=== PATIENT | male | born 1940 | race Two or more races ===

== ENCOUNTER 2025-03-11 18:38 | Emergency (ER) | payer OTHER ==
[~2025-03-11] VITALS: Ht 175.3 cm; Wt 64.0 kg
--- NOTE | 2025-03-11 18:52 | ECG ---
[facility] Test Date: 2025-03-11 Test Time: 18:46:37 Pat Name: SARAH DYSON Department: Room: Gender: M Residential Case Manager: PRISCA : 1940 Requested By: MAXIMILIAN SOTOMAYOR Order Number: [id number] Reading MD: Luigi Saul Measurements Intervals [place] Rate: 87 P: -56 MT: 169 QRS: -88 QRSD: 108 T: 12 QT: 382 QTc: 460 Interpretive Statements Sinus or ectopic atrial rhythm Prominent P waves, nondiagnostic Right ventricular hypertrophy Inferior infarct, old Borderline ST elevation, anterior leads Baseline wander in lead(s) V3 Electronically Signed On 03-13-2025 15:13:54 PDT by Luigi Saul Please click the below link to view image of tracing.
--- NOTE | 2025-03-11 19:07 | ED.PDOC ---
History of Present Illness HPI Comments This patient is a 84 y/o [id number] Kazakh-speaking only M who is [id number] family for c/c of generalized weakness and confusion for 3x days. Patient also is reported to have associated cough with phlegm production and sorethroat. He was seen at an urgent care facility for symptoms, with lab and im aging studies that were benign, earlier, today. Vitals stable and within normal limits, with exception of patient being hypertensive and having a O2 saturation of 93%RA. Chief Complaint: General Weakness Time Seen by MD: 19:00 Reviewed Notes: Nurses Notes, Medications, Allergies Allergies: Coded Allergies: NO KNOWN ALLERGIES (Unverified , 03/11/25) Information Source: Patient, Relative Mode of Arrival: Ambulatory Severity: Moderate Timing: Days Duration: Since onset Prehospital treatment: None Past Medical History PAST MEDICAL HISTORY: Denies Past Medical History (Other): hearing aid use Surgical History: Denies all surgeries Family History Family History: Unknown Social History Smoker: Non-Smoker Alcohol: Denies ETOH Use Drugs: Denies Drug Use Lives In: Home Constitutional: reports: fatigue, malaise, weakness; denies: chills, diaphoresis, fever, sweats, others EENTM: denies: blurred vision, double vision, ear bleeding, ear discharge, ear drainage, ear pain, ear ringing, eye pain, eye redness, hearing loss, mouth pain, mouth swelling, nasal discharge, nose bleeding, nose congestion, nose pain, photophobia, tearing, throat pain, throat swelling, voice changes, others Respiratory: reports: cough; denies: hemoptysis, orthopnea, SOB at rest, shortness of breath, SOB with excertion, stridor, wheezing, others Cardiovascular: denies: chest pain, dizzy spells, diaphoresis, Dyspnea on exertion, edema, irregular heart beat, left arm pain, lightheadedness, palpitations, PND, syncope, others Gastrointestinal: denies: abdomen distended, abdominal pain, blood streaked bowels, constipated, diarrhea, dysphagia, difficulty swallowing, hematemesis, melena, nausea, poor appetite, poor fluid intake, rectal bleeding, rectal pain, vomiting, others Genitourinary: denies: burning, dysuria, flank pain, frequency, hematuria, incontinence, penile discharge, penile sore, pain, testicle pain, testicle swelling, urgency, others Neurological: denies: dizziness, fainting, headache, left sided numbness, left sided weakness, numbness, paresthesia, pre-existing deficit, right sided numbness, right sided weakness, seizure, speech problems, tingling, tremors, weakness, others Musculoskeletal: denies: back pain, gout, joint pain, joint swelling, muscle pain, muscle stiffness, neck pain, others Integumetry: denies: bruises, change in color, change in hair/nails, dryness, laceration, lesions, lumps, rash, wounds, others Allergic/Immunocompromised: denies: Difficulty Healing, Frequent Infections, Hives, Itching, others Hematologic/Lymphatic: denies: anemia, blood clots, easy bleeding, easy bruising, swollen glands, others Endocrine: denies: excessive hunger, excessive sweating, excessive thirst, excessive urination, flushing, intolerance to cold, intolerance to heat, unexplained weight gain, unexplained weight loss, others Psychiatric: denies: anxiety, bipolar disorder, depression, hopeless, panic disorder, schizophrenia, sleepless, suicidal, others Unable to Obtain due to: Altered Mental Status All Other Systems: Reviewed and Negative (As per HPI) Physical Exam General Appearance: Mild Distress (Patient appeared to be in mild distress at time of evaluation. Patient was confused and displayed signs of altered mental status.), Normal HEENT: Head (Cranial exam was unremarkable. No signs of trauma. No skull depressions or deformities.), Normal ENT Inspection, Pharynx Normal, TMs Normal Neck: Full Range of Motion, Non-Tender, Normal, Normal Inspection Respiratory: Chest Non-Tender, Lungs Clear, No Accessory Muscle Use, No Respiratory Distress, Normal Breath Sounds Cardiovascular: No Edema, No JVD, No Murmur, No Gallop, Normal Peripheral Pulses, Regular Rate/Rhythm Breast Exam: Deferred Gastrointestinal: No Organomegaly, Non Tender, No Pulsatile Mass, Normal Bowel Sounds, Soft Genitalia: Deferred Pelvic: Deferred Rectal: Deferred Extremities: Other (Patient did not display any signs of trauma or injury, but was unable to perform strength or respond to commands related to cranial nerves evaluation.) Neurologic: Disoriented Cerebellar Function: NOT DONE Reflexes: NOT DONE Skin: Dry, Normal Color, Warm Lymphatic: No Adenopathy Was a procedure done? Was a procedure done?: No Differential Dx Considerations may include: URI, viral, PNA, encephalopathy, sepsis, electrolyte abnormality, UTI among others X-Ray, Labs, Meds, VS Vital Signs Date Time Temp Pulse Resp B/P (MAP) Pulse Ox O2 Delivery O2 Flow Rate FiO2 03/11/25 21:41 97.4 75 13 136/77 (96) 97 97.4 03/11/25 21:41 Room Air* 0 21 03/11/25 20:57 121/50 03/11/25 20:37 121/55 03/11/25 20:31 76 20 97 Room Air* 0 21 03/11/25 20:31 98.1 76 20 121/55 (77) 98 98.1 03/11/25 19:46 80 03/11/25 18:46 87 03/11/25 18:40 98.1 88 18 164/91 93 98.1 Lab Test 03/11/25 22:53 03/11/25 22:52 03/11/25 22:00 03/11/25 19:58 Range/Units Influenza Type A Antigen Pending Influenza Type B Antigen Pending SARS-CoV-2 Antigen (Rapid) Positive *A NEGATIVE Urine Color Light-yellow Yellow Urine Clarity Clear Clear Urine pH 6.0 5.0-9.0 Urine Specific [place] 1.014 1.001-1.035 Urine Protein Trace H Negative Urine Ketones 1+ H Negative Urine Blood Trace H Negative /uL Urine Nitrite Negative Negative Urine Bilirubin Negative Negative Urine Urobilinogen Normal Negative mg/dL Urine Leukocyte Esterase Negative Negative /uL Urine RBC 5 0 - 3 /hpf Urine Microscopic WBC 1 0-3 /HPF Urine Squamous Epithelial Cells None seen <5 /hpf Urine Bacteria Few H None Seen /hpf Urine Glucose Normal Normal mg/dL Troponin I High Sensitivity 35 32 </=54 ng/L Test 03/11/25 19:10 Range/Units White Blood Count 7.6 4.4-10.8 10^3/uL Red Blood Count 4.43 L 4.5-5.90 10^6/uL Hemoglobin 14.0 13.5-17.5 g/dL Hematocrit 40.7 L 41.0-53.0 % Mean Corpuscular Volume 92.0 80.0-100.0 fL Mean Corpuscular Hemoglobin 31.6 28.0-32.0 pg Mean Corpuscular Hemoglobin Concent 34.4 32.0-36.0 g/dL Red Cell Distribution Width 13.1 11.8-14.3 % Platelet Count 210 140-450 10^3/uL Mean Platelet Volume 7.7 6.9-10.8 fL Neutrophils (%) (Auto) 91.9 H 37.0-80.0 % Lymphocytes (%) (Auto) 1.9 L 10.0-50.0 % Monocytes (%) (Auto) 6.1 0.0-12.0 % Eosinophils (%) (Auto) 0.0 0.0-7.0 % Basophils (%) (Auto) 0.1 0.0-2.0 % Neutrophils # (Auto) 6.9 1.6-8.6 10 ^3/uL Lymphocytes # (Auto) 0.1 L 0.4-5.4 10 ^3/uL Monocytes # (Auto) 0.5 0-1.3 10 ^3/uL Eosinophils # (Auto) 0 0-0.8 10 ^3/uL Basophils # (Auto) 0 0-0.2 10 ^3/uL Nucleated Red Blood Cells 0.0 % Sodium Level 124 L 136-145 mmol/L Potassium Level 4.0 3.5-5.1 mmol/L Chloride Level 88 L 98-107 mmol/L Carbon Dioxide Level 25 20-31 mmol/L Anion Gap 11 5-15 Blood Urea Nitrogen 12 9-23 mg/dL Creatinine 0.72 0.700-1.30 mg/dL Glomerular Filtration Rate Calc 89 >90 mL/min BUN/Creatinine Ratio 16.7 10.0-20.0 Serum Glucose 119 H 74-106 mg/dL Lactic Acid Level 1.1 0.4-2.0 mmol/L Calcium Level 8.7 8.7-10.4 mg/dL Total Bilirubin 0.9 0.2-1.0 mg/dL Aspartate Amino Transferase (AST) 56 H 13-40 U/L Alanine Aminotransferase (ALT) 25 7-40 U/L Alkaline Phosphatase 64 46-116 U/L Troponin I High Sensitivity 25 </=54 ng/L B-Type Natriuretic Peptide 276.22 0-100 pg/mL Total Protein 7.1 5.7-8.2 g/dL Albumin 4.1 3.2-4.8 g/dL Current Medications Medications (Trade) Dose Ordered Sig/Dony Route Start Time Stop Time Status Last Admin Furosemide (Lasix Injection) 40 mg ONCE ONCE IV 03/11/25 20:45 03/11/25 20:46 DC 03/11/25 20:57 X-Ray, Labs, Meds, VS Comment All studies performed the ED were evaluated by me personally. Patient displayed some hyponatremia as well as an elevated BNP indicative of poorly controlled CHF. EKG revealed a sinus rhythm with a rate of 80. Right bundle-branch block and left anterior fascicular block was noted. LVH by voltage. IL interval of 155 and QT interval 421. Cardiac markers were unremarkable for any acute cardiac muscle concern. CT study was unremarkable for any acute cranial process, but the patient remains altered. Patient will be admitted for management of his electrolyte concerns as well as probable cardiac evaluation and nonemergent neurologic evaluation. This patient's insurance his Choice and therefore, provider Klaus Samano was contacted. I discussed with the patient initial presentation as well as laboratory and imaging results with him. He will come to our facility and assess the patient for admission for discharge. Time of 1ST Reevaluation: 20:30 Reevaluation 1ST: Unchanged Consultation: PCP, Cardiology, Neurology Patient Education/Counseling: Diagnosis, Treatment Family Education/Counseling: Diagnosis, Treatment, No Family Present SEPSIS Sepsis Screen Date sepsis recognized/suspect: Mar 11, 2025 Time Sepsis recognized/suspect: 1840 Recent Procedure: No On Antibiotic Therapy: No Respiratory Rate >20: No Heart Rate >90: No Temp<36 C (96.8 F) or >38.3 C: No SBP <90 or MAP <65 mmHG: No New Acute Mental Status Change: No Is the patient on CPAP, BIPAP,: No Physician Orders Electrocardigram (03/11/25 19:50) Electrocardigram (03/11/25 21:50) Head Without Contrast (03/11/25 18:50) Continuous Ekg Monitoring 08,12,16,20,00,04 (03/11/25 19:30) Sodium Chloride 0.9% (03/11/25 20:30) Heplock Iv (03/11/25 ) Rapid Influenza A&B (03/11/25 21:57) Chest Xray 1 View (03/11/25 21:57) Sodium Chloride 0.9% (03/11/25 23:00) Vital Signs Date Time Temp Pulse Resp B/P (MAP) Pulse Ox O2 Delivery O2 Flow Rate FiO2 03/11/25 21:41 97.4 75 13 136/77 (96) 97 97.4 03/11/25 21:41 Room Air* 0 21 03/11/25 20:57 121/50 03/11/25 20:37 121/55 03/11/25 20:31 76 20 97 Room Air* 0 21 03/11/25 20:31 98.1 76 20 121/55 (77) 98 98.1 03/11/25 19:46 80 03/11/25 18:46 87 03/11/25 18:40 98.1 88 18 164/91 93 98.1 Laboratory Tests Test 03/11/25 19:10 Lactic Acid Level 1.1 mmol/L (0.4-2.0) White Blood Count 7.6 10^3/uL (4.4-10.8) Medications Medications Dose Ordered Sig/Dony Route Start Time Stop Time Status Last Admin Dose Admin Furosemide 40 mg ONCE ONCE IV 03/11/25 20:45 03/11/25 20:46 DC 03/11/25 20:57 Departure 1 Departure Time of Disposition: 20:31 Impression: Primary Impression: Metabolic encephalopathy Additional Impressions: Hyponatremia Acute (diffuse) proliferative glomerulonephritis Disposition: ADMITTED INPATIENT Condition: Fair Discharged With: Self, Relative Critical Care Note Critical Care Time?: No Stability Stability form required: No Heart Score Heart Score: Heart Score Response (Comments) Value History Slightly Suspicious 0 EKG Repolarization Disturb 1 Age >65 2 Risk Factors 1 or 2 risk factors 1 Troponin N/A 0 Total 4 I personally scribed for MAXIMILIAN SOTOMAYOR PAC ([email or web address]) on 03/11/25 at 19:07. Electronically submitted by Carl Torrez [email or web address]). MAXIMILIAN SOTOMAYOR PAC Mar 11, 2025 19:07
[2025-03-11 19:21] LABS: Hematocrit 40.7 % (41.0-53.0); Hemoglobin 14.0 g/dL (13.5-17.5); Mean Corpuscular Hemoglobin 31.6 pg (28.0-32.0); Mean Corpuscular Volume 92.0 fL (80.0-100.0); Nucleated Red Blood Cells % 0.0 %
--- NOTE | 2025-03-11 19:26 | DVH ---
EXAM: CT HEAD WITHOUT CONTRAST INDICATION: Altered mental status TECHNIQUE: CT of the head without intravenous contrast. Radiation Dose : 1. Head: CT Dose: CTDI volume is 51.63 mGy. Dose-length product is 914.39 mGy*cm The dose indicators for CT are the volume Computed Tomography (CT) Dose Index (CTDIvol) and the Dose Length Product (DLP), and are measured in units of mGy and mGy-cm, respectively. These indicators are not patient dose, but values generated from the CT scanner acquisition factors. The report includes radiation exposure data for exposures received during this examination. COMPARISON: None FINDINGS: Motion and streak artifact degrades fine detail. No acute territorial infarct, intracranial hemorrhage, or mass effect. There are global involutional changes with compensatory prominence of the ventricles and sulci. Patchy periventricular and subcorti kristie white matter hypoattenuation is nonspecific but may be related to small vessel ischemic disease. The orbits are normal. The paranasal sinuses and mastoid air cells are clear. The osseous structures are unremarkable. IMPRESSION: 1. No acute territorial infarct, intracranial hemorrhage, or mass effect. 2. Age-related involutional changes. Chronic microvascular changes. 3. If clinical symptoms persist, MRI may be beneficial in further evaluation. Radiation optimization: All CT scans at this facility use at least one of these dose optimization jakub hniques: automated exposure control mA and/or kV adjustment per patient size (includes targeted exam s where dose is matched to clinical indication) or iterative reconstruction.
[2025-03-11 19:42] LABS: Alanine Aminotransferase 25 U/L (7-40); Alkaline Phosphatase 64 U/L (46-116); BUN/Creatinine Ratio 16.7 (10.0-20.0); Blood Urea Nitrogen 12 mg/dL (9-23); Calcium 8.7 mg/dL (8.7-10.4); Potassium 4.0 mmol/L (3.5-5.1); Total Protein 7.1 g/dL (5.7-8.2)
[2025-03-11 19:43] LABS: Albumin 4.1 g/dL (3.2-4.8); Bilirubin, Total 0.9 mg/dL (0.2-1.0); Chloride 88 mmol/L (98-107); Glucose 119 mg/dL (74-106); Sodium 124 mmol/L (136-145)
[2025-03-11 19:44] LABS: Anion Gap 11 (5-15); Carbon Dioxide 25 mmol/L (20-31)
[2025-03-11] MEDS: SODIUM CHLORIDE 0.9% 1,000 ML IV ONE (20:30)
[2025-03-11 20:31] VITALS: PULSE 76; RESP 20; O2SAT 97
[2025-03-11] MEDS: FUROSEMIDE 40 MG/4 ML VIAL IV ONE (20:57)
[2025-03-11 21:41] VITALS: TEMP 97.4
[2025-03-11 22:19] LABS: Urine Protein, UAD TRACE (Negative)
[2025-03-11 23:23] LABS: COVID19 ANTIGEN SOFIA FIA POSITIVE (NEGATIVE)
[2025-03-11] MEDS: SODIUM CHLORIDE 0.9% 500 ML IV ONE (23:31)
[2025-03-11] MEDS: guaiFENesin-DM 100/10mg/5ml SYR PO ONE (23:47)
--- NOTE | 2025-03-12 00:01 | DVH ---
CHEST RADIOGRAPH Indication: elevated bnp Technique: Single frontal view of the chest was obtained Comparison: XR CHEST 2 VIEW on DOS: 03/09/25 FINDINGS/IMPRESSION: There is right lower lung opacity. There is enlargement of the cardiomediastinal silhouette. There is no pleural effusion or pneumothorax. No acute osseous abnormality. Rounded radiopaque densities pro ject over the left thorax, clinical correlation is suggested.
[2025-03-12] MEDS ORDERED: LEVO500T91 PO (00:22)
[2025-03-12] MEDS ORDERED: ALBUAER3 IN (00:23)
--- NOTE | 2025-03-12 00:25 | DVHINCON2 ---
HANSEL CAMPA NP 03/12/25 0025: Date of service: Mar 12, 2025 Referring Physician Xin Mike PA-c Reason for Consultation Medical management History of Present Illness 84-year-old male with unknown past medical history presents with complaints of generalized weakness, cough, congestion x3 days. Information in this HPI is limited due to the patient being hard of hearing and acquired with the assistance of the patient's daughter who is at the bedside. This patient was initially seen at [facility] urgent care on February with similar complaints. At such time the patient did have a CT of the chest, abdomen and pelvis which the patient was found to have loculated small right pleural effusion, and moderate stool burden. Patient's daughter endorses that he does not follow up with PCP and recently moved in with them. Also endorsed weight loss due to oral pain from poor dentition. However has begun to gain weight since the patient moved in with them. Patient's daughter states that she brought him into the emergency department because the patient's sat down and had some difficulty standing back up. While in the emergency department the patient was treated with IV Lasix for unknown reason. During the emergency department evaluation W7.6, H&H 14.0/40.7, PLT 210, Na 124, K4.0, BUN 12, creatinine 0.72, GFR 89, LA 1.1, BNP 276, troponin 25/32/35, UA negative, influenza a and B negative, COVID [address] head no acute infarct, hemorrhage or mass effect, age-related changes, chronic microvascular changes, chest x-ray impression reads right lower lung opacity, enlargement of the cardia mediastinal silhouette. There is no pleural effusion or pneumothorax. Rounded radiopaque densities projected over the left thorax clinical correlation is suggested with it which is consistent with shrapnel at an earlier age. At this time there are no complaints of fevers, chills, shortness of breath, chest pain, palpitations, abdominal pain, nausea, vomiting, diarrhea. Past Medical History None reported Social History Denies illicit drug use, smoking, alcohol Allergies: Coded Allergies: NO KNOWN ALLERGIES (Unverified , 03/11/25) Home Meds Active Scripts Dextromethorphan-Guaifenesin (Robitussin-Dm) 10 Ml Sr, 10 ML GT Q4HPRN PRN, #60 SYP Prov:HANSEL CAMPA BLADDER CLEANER 03/12/25 Albuterol Sulfate (VENTOLIN MDI) 90 Mcg Ih, 90 MCG IN Q4HPRN PRN for 10 Days, #1 INH Prov:HANSEL CAMPA BLADDER CLEANER 03/12/25 Levofloxacin Hemihydrate (LEVAQUIN 500 MG) 500 Mg Tab, 500 MG PO DAILY for 7 Days, #7 TAB Prov:HANSEL CAMPA BLADDER CLEANER 03/12/25 Review of Systems 10 systems reviewed and negative except as per HPI Vital Signs Vital Signs Date Time Temp Pulse Resp B/P (MAP) Pulse Ox O2 Delivery O2 Flow Rate FiO2 03/11/25 21:41 97.4 75 13 136/77 (96) 97 97.4 03/11/25 21:41 Room Air* 0 21 Physical Exam GENERAL: Patient appearing stated age, in no acute distress. HEENT: Pupils equal and reactive to light and accommodation. Extraocular muscles intact. Mucous membranes moist. Conjunctivae pink. Anicteric sclerae. LUNGS: Bilateral air entry. No wheezes, rhonchi or rales. HEART: Regular rate and rhythm. Normal S1 and S2. ABDOMEN: BS normoactive, soft, nontender, and nondistended. No CVA tenderness. EXTREMITIES: No clubbing, cyanosis, edema. No calf tenderness. Pedal pulses 2+. NEUROLOGICAL: The patient is alert and oriented times 3. CN II-XII intact. No focal deficits on gross sensory or motor examination. Hard of hearing at baseline. Labs/Diagnostic Data Labs Test 03/11/25 22:53 03/11/25 22:52 03/11/25 22:00 03/11/25 19:10 Range/Units Influenza Type A Antigen Negative Negative Influenza Type B Antigen Negative Negative SARS-CoV-2 Antigen (Rapid) Positive *A NEGATIVE Urine Color Light-yellow Yellow Urine Clarity Clear Clear Urine pH 6.0 5.0-9.0 Urine Specific [place] 1.014 1.001-1.035 Urine Protein Trace H Negative Urine Ketones 1+ H Negative Urine Blood Trace H Negative /uL Urine Nitrite Negative Negative Urine Bilirubin Negative Negative Urine Urobilinogen Normal Negative mg/dL Urine Leukocyte Esterase Negative Negative /uL Urine RBC 5 0 - 3 /hpf Urine Microscopic WBC 1 0-3 /HPF Urine Squamous Epithelial Cells None seen <5 /hpf Urine Bacteria Few H None Seen /hpf Urine Glucose Normal Normal mg/dL Troponin I High Sensitivity 35 </=54 ng/L White Blood Count 7.6 4.4-10.8 10^3/uL Red Blood Count 4.43 L 4.5-5.90 10^6/uL Hemoglobin 14.0 13.5-17.5 g/dL Hematocrit 40.7 L 41.0-53.0 % Mean Corpuscular Volume 92.0 80.0-100.0 fL Mean Corpuscular Hemoglobin 31.6 28.0-32.0 pg Mean Corpuscular Hemoglobin Concent 34.4 32.0-36.0 g/dL Red Cell Distribution Width 13.1 11.8-14.3 % Platelet Count 210 140-450 10^3/uL Mean Platelet Volume 7.7 6.9-10.8 fL Neutrophils (%) (Auto) 91.9 H 37.0-80.0 % Lymphocytes (%) (Auto) 1.9 L 10.0-50.0 % Monocytes (%) (Auto) 6.1 0.0-12.0 % Eosinophils (%) (Auto) 0.0 0.0-7.0 % Basophils (%) (Auto) 0.1 0.0-2.0 % Neutrophils # (Auto) 6.9 1.6-8.6 10 ^3/uL Lymphocytes # (Auto) 0.1 L 0.4-5.4 10 ^3/uL Monocytes # (Auto) 0.5 0-1.3 10 ^3/uL Eosinophils # (Auto) 0 0-0.8 10 ^3/uL Basophils # (Auto) 0 0-0.2 10 ^3/uL Nucleated Red Blood Cells 0.0 % Sodium Level 124 L 136-145 mmol/L Potassium Level 4.0 3.5-5.1 mmol/L Chloride Level 88 L 98-107 mmol/L Carbon Dioxide Level 25 20-31 mmol/L Anion Gap 11 5-15 Blood Urea Nitrogen 12 9-23 mg/dL Creatinine 0.72 0.700-1.30 mg/dL Glomerular Filtration Rate Calc 89 >90 mL/min BUN/Creatinine Ratio 16.7 10.0-20.0 Serum Glucose 119 H 74-106 mg/dL Lactic Acid Level 1.1 0.4-2.0 mmol/L Calcium Level 8.7 8.7-10.4 mg/dL Total Bilirubin 0.9 0.2-1.0 mg/dL Aspartate Amino Transferase (AST) 56 H 13-40 U/L Alanine Aminotransferase (ALT) 25 7-40 U/L Alkaline Phosphatase 64 46-116 U/L B-Type Natriuretic Peptide 276.22 0-100 pg/mL Total Protein 7.1 5.7-8.2 g/dL Albumin 4.1 3.2-4.8 g/dL Assessment - COVID-19 positive - Right lower lobe opacity, likely super imposed pneumonia - Hyponatremia The patient's chart was reviewed in its entirety including lab work, imaging, history, review of previous visit to urgent care, evaluation of the patient, and physical assessment. During the emergency department evaluation CBC is unremarkable. Na 124, K4.0, BUN 12, creatinine 0.72, LA 1.1, UA is negative. BNP is 276 an indeterminate value, troponin negative . CT of the head was interpreted per the radiologist and reviewed per myself. Impression reads no acute territorial infarct, intracranial hemorrhage, or mass effect. Age- related involutional changes. Chronic microvascular changes. In the emergency department the patient was treated with IV Lasix 40 mg for unknown reason. On arrival to the emergency department, the ER provider believe the patient was altered mental status because he was not following commands. However, on my ev aluation the patient is found to be very hard of hearing, alert and oriented following commands with equal bilateral lower extremity strength 5/5, equal bilateral upper extremity strength 5/5. He is also noted to be using a urinal independently. At this time I did go ahead and order a chest x-ray, viral swabs including influenza a and B and COVID-19 swabs. Rapid influenza swabs was negative, COVID-19 was positive. Chest x-ray was interpreted per the radiologist and reviewed per myself. I agree with the impression that reads there is a right lower lobe opacity. There is no pleural effusion or pneumothorax. No acute osseous abnormality. Rounded radiopaque densities project over the left thorax, clinical correlation is suggested. However CT of the chest, abdomen, pelvis completed on March 09 had a positive finding for small right pleural effusion. At the time of my evaluation patient is hemodynamically stable. Afebrile 97.4, BP 125/61, HR 81, RR 16 BPM, oxygen saturation 95% on room air. Given the new findings and treatment ordered by the emergency department I ordered 500 mL bolus of normal saline, prophylactic dose of IV Levaquin for superimposed pneumonia, IV dexamethasone and oral Robitussin for cough. Plan/Recommendation At this time I did discuss inpatient versus outpatient management with the patient's daughter at the bedside. She did endorsed that the patient did have a fear about being in the hospital. Given the patient is hemodynamically stable without the need of supplemental oxygen the patient will be discharged home in stable condition. I did send a prescription for oral Levaquin and an albuterol inhaler to the patient's pharmacy. Also advised the family in symptom management with [id number] cough medicine and Tylenol for pain. Advised the family to maintain good hydration. O case management associate Karina has been consulted to establish home safety evaluation, follow up at [facility] urgent Care for repeat labs (BMP), repeat chest x-ray. We will also plan for outpatient physical therapy. The patient and family at the bedside were given strict ER precautions including but not limited to fevers, chills, shortness of breath, confusion, chest pain, palpitations, nausea, vomiting, abdominal pain, diarrhea, overall decompensation of condition. If any of these occur they have been instructed to return to the nearest emergency department for further evaluation and treatment. Plan discussed with: Patient, Daughter, Other (Son in law) KAVHE BROTHERS MD 03/12/25 1538: Allergies: Coded Allergies: NO KNOWN ALLERGIES (Unverified , 03/11/25) Home Meds Active Scripts Dextromethorphan-Guaifenesin (Robitussin-Dm) 10 Ml Sr, 10 ML GT Q4HPRN PRN, #60 SYP Prov:HANSEL CAMPA NP 03/12/25 Albuterol Sulfate (VENTOLIN MDI) 90 Mcg Ih, 90 MCG IN Q4HPRN PRN for 10 Days, #1 INH Prov:HANSEL CAMPA NP 03/12/25 Levofloxacin Hemihydrate (LEVAQUIN 500 MG) 500 Mg Tab, 500 MG PO DAILY for 7 Days, #7 TAB Prov:HANSEL CAMPA NP 03/12/25 HANESL CAMPA NP Mar 12, 2025 00:25 KAVEH BROTHERS MD Mar 12, 2025 15:38
[2025-03-12 01:00] VITALS: BP 128/58; PULSE 70; RESP 19; O2SAT 94
[2025-03-12] MEDS ORDERED: DEXT1SYP9 GT (04:35)
--- NOTE | 2025-03-12 07:00 | ECG ---
[facility] Test Date: 2025-03-11 Test Time: 19:46:52 Pat Name: SARAH DYSON Department: Room: Gender: M [employer]: : [id number] Requested By: MAXIMILIAN SOTOMAYOR Order Number: [id number] Reading MD: Luigi Saul Measurements Intervals [place] Rate: 80 P: -2 ME: 155 QRS: -87 QRSD: 172 T: 30 QT: 421 QTc: 486 Interpretive Statements Sinus rhythm RBBB and LAFB LVH by voltage Electronically Signed On 03-13-2025 15:13:58 PDT by Luigi Saul Please click the below link to view image of tracing.
== END 2025-03-12 01:40 | disposition home or self-care (01) ==
LOC: ER 18:38
DX: G93.41 Metabolic encephalopathy (principal); E87.1 Hypo-osmolality and hyponatremia; N00.3 Acute nephritic syndrome with diffuse mesangial proliferative glomerulonephritis; Z79.899 Other long term (current) drug therapy; Z20.822 Contact with and (suspected) exposure to COVID-19
CPT/HCPCS: 36415; 70450; 71045; 80053; 81001; 83605; 83880; 84484; 85025; 87426; 87804; 93005; 96365; 96375; 99285; J1100; J1938; J1956